=== PATIENT | female | born 1965 | race Caucasian/White ===

== ENCOUNTER 2018-11-11 03:52 | Emergency (ER) | payer BC, OTHER ==
[~2018-11-11] VITALS: Ht 157.5 cm; Wt 108.9 kg
--- NOTE | ~2018-11-11 | EKG ---
[place] [address] [facility] [employer] [place] [address] ELECTROCARDIOGRAM REPORT Name: HERMELINDO SALAMANCA MAREK Room #: DEP [facility]#: [id number] Admission: 11/11/18 Attend Phys: Discharge: 11/11/18 Date of : 67 Report #: [id number] THIS REPORT FOR: //name// [facility] ED Test Date: 2018-11-11 Test Time: 04:25:35 Pat Name: HERMELINDO SALAMANCA Department: Room: Gender: F Gift Manager: ray : 1965 Requested By: Matt Echavarria Order Number: [id number] MD: Garrett Grijalva Measurements Intervals [address] Rate: 69 P: -50 CA: 143 QRS: -12 QRSD: 95 T: 20 QT: 396 QTc: 425 Interpretive Statements Sinus or ectopic atrial rhythm Poor R wave progression No previous ECG available for comparison Electronically Signed On 11-11-2018 8:29:57 CLIENT SUCCESS DIRECTOR by Garrett Grijalva [email or web address] <ELECTRONICALLY SIGNED> By: Garrett Grijalva MD, [facility] 11/11/18 0829 0425 0425 Garrett Grijalva MD, FACC /EPI
[2018-11-11] MEDS ORDERED: XANAX1 MG PO (04:16)
[2018-11-11] MEDS ORDERED: NF (04:18)
[2018-11-11] MEDS ORDERED: CLARITIN10 MG PO (04:18)
[2018-11-11] MEDS ORDERED: ZANTAC 150MG T150 MG PO ×2 (04:19)
[2018-11-11 04:41] LABS: BASOPHILS 0.5 % (0.0-2.0); EOSINOPHILS 1.6 % (0.0-3.0); HEMATOCRIT 41.4 % (37.0-47.0); HEMOGLOBIN 13.9 gm/dL (12.0-15.0); LYMPHOCYTES 37.3 % (24.0-44.0); MCH 28.6 pg (26.0-34.0); MCHC 33.6 g/dL (28.0-37.0); MCV 85.1 fL (80.0-100.0); MONOCYTES 7.3 % (1.0-8.0); PLATELET COUNT 317 thou/uL (150-400); POLYS 53.3 % (36.0-66.0); RBC 4.86 mil/uL (4.20-5.00); RDW 13.5 % (10.5-14.5); WBC 7.4 thou/uL (4.0-11.0)
[2018-11-11 04:46] LABS: ANION GAP 9 mmol/L (7-16); BUN 17 mg/dL (7-18); CALCIUM 10.4 mg/dL (8.5-10.1); CHLORIDE 102 mmol/L (98-107); CO2 29 mmol/L (21-32); CREATININE 0.7 mg/dL (0.6-1.0); GLUCOSE 100 mg/dL (74-106); POTASSIUM 3.8 mmol/L (3.5-5.1); SODIUM 140 mmol/L (136-145)
[2018-11-11 04:54] LABS: TROPONIN-I <0.06 ng/mL (<0.06)
[2018-11-11 05:47] VITALS: BP 188/85
== END 2018-11-11 05:58 | disposition home or self-care (01) ==
LOC: ER 03:52
PROVIDERS: Emergency Medicine
DX: R07.89 Other chest pain (principal)